=== PATIENT | male | born 1975 | race Caucasian/White ===

== ENCOUNTER 2017-06-18 14:30 | Emergency (ER) | payer SELFPAY ==
[~2017-06-18] VITALS: Ht 172.7 cm; Wt 87.5 kg
[~2017-06-18 14:30] MED LIST: BACT800T5 PO; DICL75 PO; DILA2TAB2 PO; HYDR-3533 PO
[2017-06-18 14:33] VITALS: BP 135/85; PULSE 97; RESP 20; TEMP 98.8; O2SAT 97
--- NOTE | 2017-06-18 14:39 | PD ---
Physical Exam Date Seen by Provider: Jun 18, 2017 Time Seen by Provider: 14:36 Narrative 42 y/o male with Hx Fall through a dock a week ago. Patient now has left rib pain. No significant SOB except due to pain. No Hemoptysis or cough. No Other injury. Vital signs reviewed. Patient stable. Awaiting Bed placement. Data Data Last Documented VS Vital Signs Date Time Temp Pulse Resp B/P Pulse Ox O2 Delivery O2 Flow Rate FiO2 06/18/17 14:33 98.8 97 20 135/85 97 MDM Medical Record Reviewed: Yes Supervised Visit with NABIL: Yes Condition: Stable Luiz Philip Jun 18, 2017 14:39
== END 2017-06-18 17:16 | disposition left against medical advice (07) ==
LOC: NED 14:30
DX: R07.81 Pleurodynia (principal)
CPT/HCPCS: 99281